=== PATIENT | female | born 1975 | race Caucasian/White ===

== ENCOUNTER 2021-09-04 20:07 | Emergency (ER) | payer BC ==
[~2021-09-04 20:07] MED LIST: ALBUTEROL1.25 MG/3 INH; GLUCOPHAGE500 MG PO; LEVAQUIN TAB 5500 MG PO; LEVAQUIN750 MG PO; LIDODERM PATCH 5% TOP; LISINOPRIL5 MG PO; PROVENTIL HFA6.7 GM INH; ZYRTEC10 MG PO
[2021-09-04 21:46] LABS: HEMOGLOBIN 15.8 gm/dl (12.3-15.3); RED BLOOD COUNT 4.91 M/UL (4.00-5.10); WHITE BLOOD COUNT 10.6 K/UL (4.5-11.0)
[2021-09-04 22:12] LABS: BUN/CREATININE RATIO 18 (0-10)
[2021-09-04] MEDS ORDERED: REGLAN5 MG PO (22:40)
== END 2021-09-04 23:30 | disposition home or self-care (01) ==
LOC: ER1 20:07
PROVIDERS: Physician Assistant
DX: R10.13 Epigastric pain (principal); I11.9 Hypertensive heart disease without heart failure; E11.9 Type 2 diabetes mellitus without complications; Z88.1 Allergy status to other antibiotic agents; Z87.891 Personal history of nicotine dependence
CPT/HCPCS: 71045; 80053; 82550; 82553; 83690; 84484; 85025; 93005; 96374; 99284; J2765

== ENCOUNTER 2021-11-04 16:21 | Emergency (ER) | payer BC ==
[~2021-11-04 16:21] MED LIST changes: +REGLAN5 MG PO
[2021-11-04 18:28] LABS: HEMOGLOBIN 14.4 gm/dl (12.3-15.3); RED BLOOD COUNT 4.63 M/UL (4.00-5.10); WHITE BLOOD COUNT 7.3 K/UL (4.5-11.0)
[2021-11-04 18:43] LABS: BUN/CREATININE RATIO 29 (0-10)
[2021-11-04] MEDS ORDERED: ACID CONTROLLER20 MG PO (19:41)
[2021-11-04] MEDS ORDERED: CARAFATE1 GM PO (19:41)
== END 2021-11-04 20:55 | disposition home or self-care (01) ==
LOC: ER1 16:21
PROVIDERS: Physician Assistant
DX: K21.00 Gastro-esophageal reflux disease with esophagitis, without bleeding (principal); I25.2 Old myocardial infarction; E11.9 Type 2 diabetes mellitus without complications; I10 Essential (primary) hypertension
CPT/HCPCS: 71045; 80053; 82550; 82553; 84484; 85025; 93005; 99284; Q9967

== ENCOUNTER → 2021-11-27 | Outpatient (CLI) | payer BC ==
[~2021-11-27] MED LIST changes: +ACID CONTROLLER20 MG PO; +CARAFATE1 GM PO
== END ==
LOC: EXRD 14:30
DX: M79.601 Pain in right arm (principal)
CPT/HCPCS: 93971